=== PATIENT | female | born 1940 | race Caucasian/White ===

== ENCOUNTER 2021-11-09 10:42 | Outpatient (CLI) | payer MEDICARE, OTHER | END 2021-11-09 10:43 | disposition home or self-care (01) | LOC: CSHLAB 10:42 | PROVIDERS: ATTEND Internal Medicine Gastroenterology | DX: Z20.822 Contact with and (suspected) exposure to COVID-19 (principal); R10.13 Epigastric pain | CPT/HCPCS: 87811 ==

== ENCOUNTER 2021-11-14 06:22 | Day surgery (SDC) | payer MEDICARE, OTHER ==
[2021-11-11 09:24] VITALS: BMI 26.5
[2021-11-14] MEDS ORDERED: Lidocaine 1% MPF 2 ML VIAL ONE (07:56)
[2021-11-14] MEDS ORDERED: PROPOFOL 40 ML ONE (07:57)
== END 2021-11-14 09:10 | disposition home or self-care (01) ==
LOC: CSHSDC 06:22
PROVIDERS: ATTEND Internal Medicine Gastroenterology
PROC: 0DB98ZX Excision of Duodenum, Via Natural or Artificial Opening Endoscopic, Diagnostic (ICD-10-PCS; principal; 2021-11-14)
DX: K29.70 Gastritis, unspecified, without bleeding (principal); K44.9 Diaphragmatic hernia without obstruction or gangrene; R11.0 Nausea; I10 Essential (primary) hypertension; E03.9 Hypothyroidism, unspecified; Z20.822 Contact with and (suspected) exposure to COVID-19
CPT/HCPCS: 88305; J2704